=== PATIENT | female | born 1965 | race Caucasian/White ===

== ENCOUNTER → 2018-06-21 | Emergency (ER) | payer OTHER ==
[~2018-06-21] MED LIST: ASPIRIN 325 MG TABLET ONE; ASPIRIN 325 MG TABLET PO ONE; ASPIRIN 81 MG CHEWABLE TABLETS ONE; ASPIRIN 81 MG CHEWABLE TABLETS PO ONE; CLOPIDOGREL BISULFATE 300 MG TABLET ONE; CLOPIDOGREL BISULFATE 300 MG TABLET PO ONE; ENOXAPARIN NA (PORCINE) 100 MG/1 ML DISP.SYRIN SQ ONE; ENOXAPARIN NA (PORCINE) 80 MG/0.8 ML DISP.SYRIN SQ ONE; METOPROLOL TARTRATE 5 MG/5 ML VIAL IVPUSH ONE; METOPROLOL TARTRATE 5 MG/5 ML VIAL ONE; NITROGLYCERIN SUBLINGUAL 1/150 0.4 MG TAB ONE; NITROGLYCERIN SUBLINGUAL 1/150 0.4 MG TAB SL ONE; ONDANSETRON 4 MG/2 ML VIAL IVPUSH ONE; ONDANSETRON 4 MG/2 ML VIAL ONE; PANTOPRAZOLE SODIUM 40 MG VIAL IVPUSH ONE; PANTOPRAZOLE SODIUM 40 MG VIAL ONE; morphine CARPU-JECT 4 MG/1 ML DISP.SYRIN IVPUSH ONE; morphine SULFATE 4 MG/ML VIAL ONE
[2018-06-21 18:11] VITALS: TEMP 98; BMI 34.1
--- NOTE | 2018-06-21 18:15 | PDOC ---
History of Present Illness - History of Present Illness Initial Comments: 06/21/18 18:45 Ms. Boykin is a 53 yo female w/ pmh of IBS, anxiety, and HTN who presents for evaluation of chest pain x1 day. Patient reports she was feeling her normal self until she woke up this morning with multiple episodes of diarrhea and vomiting. Patient reports vomiting several times, roughly once every half hour. Vomit was mostly bile and non-bloody and associated with midline sternal chest pain. Patient reports she has had a similar episode to this once before and that the only thing that helped her at that time was morphine. Patient endorses drinking one beer and some wine yesterday evening. Patient also reports she used to take xanax for anxiety but has recently run out. Per step-father who is with her, patient has recently moved to [facility] to be in a better school district for daughter. He also informs that Ms. Boykin will often drink a full bottle of wine of an evening and that she has significant anxiety. Both he and patient believe her anxiety is causing this episode. The patient denies shortness of breath, headache and dizziness. Denies fever, chills, and constipation. Denies dysuria, frequency, urgency and hematuria. Allergies: NKDA <Can Patiño - Last Filed: 06/21/18 18:49> <Tami Sauceda - Last Filed: 06/21/18 20:37> - General Chief Complaint: Chest Pain Stated Complaint: SHORT OF BREATH CHEST PAIN NAUSEA WRETCHING Time Seen by Provider: 06/21/18 18:01 Past History - Past Medical History COPD: No GI Disorders: Yes (GERD) HTN: Yes - Suicide/Smoking/Psychosocial Hx Smoking History: Current every day smoker Have you smoked in the past 12 months: Yes Number of Cigarettes Smoked Daily: 5 Information on smoking cessation initiated: Yes 'Breaking Loose' booklet given: 06/21/18 Hx Alcohol Use: Yes (WINE) Drug/Substance Use Hx: Yes (MARIJUANA) Substance Use Type: Alcohol, Marijuana <Can Patiño - Last Filed: 06/21/18 18:49> <Tami Sauceda - Last Filed: 06/21/18 20:37> - Past Medical History Allergies/Adverse Reactions: Allergies Allergy/AdvReac Type Severity Reaction Status Date / Time No Known Allergies Allergy Unverified 06/21/18 17:59 Home Medications: Ambulatory Orders Enalapril Maleate [Vasotec -] 10 mg PO DAILY 06/21/18 Review of Systems - Review of Systems Comments:: 06/21/18 18:14 GENERAL/CONSTITUTIONAL: No fever or chills. No weakness. HEAD, EYES, EARS, NOSE AND THROAT: No change in vision. No ear pain or discharge. No sore throat. CARDIOVASCULAR: +Midline chest pain, constant, underneath sternum. No shortness of breath RESPIRATORY: No cough, wheezing, or hemoptysis. GASTROINTESTINAL: +Generalized abdominal pain as well since chest pain started. N/V/D as described. No constipation. GENITOURINARY: No dysuria, frequency, or change in urination. MUSCULOSKELETAL: No joint or muscle swelling or pain. No neck or back pain. SKIN: No rash NEUROLOGIC: No headache, vertigo, loss of consciousness, or change in strength/ sensation. ENDOCRINE: No increased thirst. No abnormal weight change HEMATOLOGIC/LYMPHATIC: No anemia, easy bleeding, or history of blood clots. ALLERGIC/IMMUNOLOGIC: No hives or skin allergy. <Can Patiño - Last Filed: 06/21/18 18:49> *Physical Exam - Vital Signs Last Vital Signs Temp Pulse Resp BP Pulse Ox 98 F 110 H 22 160/110 99 06/21/18 17:59 06/21/18 17:59 06/21/18 17:59 06/21/18 17:59 06/21/18 17:59 - Physical Exam Comments: 06/21/18 18:14 GENERAL: Awake, alert, and fully oriented, in no acute distress HEAD: No signs of trauma, normocephalic, atraumatic EYES: PERRLA, EOMI, sclera anicteric, conjunctiva clear ENT: Auricles normal inspection, hearing grossly normal, nares patent, oropharynx clear without exudates. Moist mucosa NECK: Normal ROM, supple, no lymphadenopathy, JVD, or masses LUNGS: No distress, speaks full sentences, clear to auscultation bilaterally HEART: Regular rate and rhythm, normal S1 and S2, no murmurs, rubs or gallops, peripheral pulses normal and equal bilaterally. ABDOMEN: +Patient TTP in all 4 quadrants. Soft, normoactive bowel sounds. No guarding, no rebound. No masses EXTREMITIES: Normal inspection, Normal range of motion, no edema. No clubbing or cyanosis. NEUROLOGICAL: Cranial nerves II through XII grossly intact. Normal speech, normal gait, no focal sensorimotor deficits SKIN: Warm, Dry, normal turgor, no rashes or lesions noted. <Can Patiño - Last Filed: 06/21/18 18:49> - Vital Signs Last Vital Signs Temp Pulse Resp BP Pulse Ox 98 F 112 H 20 118/99 100 06/21/18 17:59 06/21/18 18:40 06/21/18 18:40 06/21/18 18:40 06/21/18 18:40 <Tami Sauceda - Last Filed: 06/21/18 20:37> ED Treatment Course - LABORATORY CBC & Chemistry Diagram: 06/21/18 18:28 06/21/18 18:28 - RADIOLOGY Radiology Studies Ordered: Category Date Time Status CHEST X-RAY PORTABLE* [RAD] Stat Radiology 06/21/18 18:05 Ordered <Can Patiño - Last Filed: 06/21/18 18:49> - LABORATORY CBC & Chemistry Diagram: 06/21/18 18:28 06/21/18 19:14 - ADDITIONAL ORDERS Additional order review: Laboratory Results 06/21/18 06/21/18 06/21/18 18:28 18:28 18:28 PT with INR INR Sodium Cancelled Potassium Cancelled Chloride Cancelled Carbon Dioxide Cancelled Anion Gap Cancelled BUN Cancelled Creatinine Cancelled Creat Clearance w eGFR Cancelled Random Glucose Cancelled Calcium Cancelled Magnesium 1.8 Total Bilirubin Cancelled AST Cancelled ALT Cancelled Alkaline Phosphatase Cancelled Creatine Kinase Cancelled Creatine Kinase Index Cancelled CK-MB (CK-2) Cancelled Troponin I Cancelled Total Protein Cancelled Albumin Cancelled 06/21/18 18:28 PT with INR 11.1 INR 0.99 Sodium Potassium Chloride Carbon Dioxide Anion Gap BUN Creatinine Creat Clearance w eGFR Random Glucose Calcium Magnesium Total Bilirubin AST ALT Alkaline Phosphatase Creatine Kinase Creatine Kinase Index CK-MB (CK-2) Troponin I Total Protein Albumin 06/21/18 18:28 RBC 5.00 MCV 94.0 MCHC 34.2 RDW 12.5 MPV 9.5 Neutrophils % No Result Required. Lymphocytes % No Result Required. - Medications Given in the ED: ED Medications Discontinued Medications Generic Name Dose Route Start Last Admin Trade Name Gianni PRN Reason Stop Dose Admin Aspirin 325 mg 06/21/18 18:01 06/21/18 18:49 Asa - PO 06/21/18 18:02 Not Given ONCE ONE Aspirin 325 mg 06/21/18 18:04 06/21/18 18:49 Asa - PO 06/21/18 18:05 Not Given ONCE ONE Aspirin 162 mg 06/21/18 18:47 06/21/18 18:51 Asa - PO 06/21/18 18:48 162 mg ONCE ONE Administration Nitroglycerin 0.4 mg 06/21/18 18:01 06/21/18 18:20 Nitrostat - SL 06/21/18 18:02 0.4 mg ONCE ONE Administration Ondansetron HCl 4 mg 06/21/18 18:01 06/21/18 18:40 Zofran Injection IVPUSH 06/21/18 18:02 4 mg ONCE ONE Administration Pantoprazole Sodium 40 mg 06/21/18 18:03 06/21/18 18:43 Protonix Iv IVPUSH 06/21/18 18:04 40 mg ONCE ONE Administration <Tami Sauceda - Last Filed: 06/21/18 20:37> Medical Decision Making - Medical Decision Making 06/21/18 18:54 Ms. Boykin is a 53 yo female w/ pmh as described who presents for evaluation of chest and abdominal pain with nausea and vomiting. Patient given SL Nitroglycerin at presentation with no alleviation of symptoms. Patient also given protonix and ASA 162 for prophylaxis. Cardiac workup started for further evaluation. Patient signed off to oncoming team for further evaluation. <Can Patiño - Last Filed: 06/21/18 18:49> *DC/Admit/Observation/Transfer <Can Patiño - Last Filed: 06/21/18 18:49> <Tami Sauceda - Last Filed: 06/21/18 20:37> Diagnosis at time of Disposition: STEMI (ST elevation myocardial infarction) Qualifiers: Involved coronary artery: unspecified coronary artery Qualified Code(s): I21.3 - ST elevation (STEMI) myocardial infarction of unspecified site - Discharge Dispostion Disposition: TRANSFER ACUTE CARE/OTHER HOSP Condition at time of disposition: Guarded
--- NOTE | 2018-06-21 18:23 | PDOC ---
Attending Attestation - [facility] HPI: 06/21/18 18:57 The patient is a 53 year old female with a significant past medical history of IBS, anxiety, and HTN who presents to the ED complaining of epigastric pain, nausea, and vomiting since this morning. She reports multiple episodes of bilious emesis, no blood reported. She also reports water diarrhea without blood but notes this is chronic due to supposed colitis. Patient notes one similar episode several months ago in [facility] and was treated symptomatically with intravenous fluids and pain medication without definite diagnosis. Further history obtained from step father reveals chronic alcohol abuse and anxiety issues. There has also been chronic use of benzodiazepines in the past but no other abuse of drugs. Documentation prepared by Adilson Brody, acting as chief medical technologist for Emergency Dept,Physician, - Physicial Exam PE: 06/21/18 18:59 GENERAL: Afebrile, Normal Blood pressure and O2 saturation. Well developed, well nourished. Awake and alert. No acute distress. HEENT: Normocephalic, atraumatic. PERRLA, EOMI. No conjunctival pallor. Sclera are non- icteric. Moist mucous membranes. Oropharynx is clear. NECK: Supple. Full ROM. No JVD. Carotid pulses 2+ and symmetric, without bruits. No thyromegaly. No lymphadenopathy. CARDIOVASCULAR: + mild tachycardia Regular rhythm. No murmurs, rubs, or gallops. Distal pulses are 2+ and symmetric. PULMONARY: No evidence of respiratory distress. Lungs clear to auscultation bilaterally. No wheezing, rales or rhonchi. ABDOMINAL: + Mild diffuse tenderness in the epigastrium, right and left upper quadrant without guarding or rebound. Hewitt sign is negative. Soft. . Non-distended.No organomegaly. Normoactive bowel sounds. MUSCULOSKELETAL Normal range of motion at all joints. No bony deformities or tenderness. No CVA tenderness. EXTREMITIES: No cyanosis. No clubbing. No edema. No calf tenderness. SKIN: Warm and dry. Normal capillary refill. No rashes. No jaundice. NEUROLOGICAL: Alert, awake, appropriate. Cranial nerves 2-12 intact. No deficits to light touch and temperature in face, upper extremities and lower extremities. No motor deficits in the in face, upper extremities and lower extremities. Normoreflexic in the upper and lower extremities. Normal speech. Toes are down- going bilaterally. Gait is normal without ataxia. PSYCHIATRIC: Cooperative. Good eye contact. Appropriate mood and affect. - Medical Decision Making 06/21/18 18:59 Most likely gastritis secondary to chronic alcohol abuse. Rule out atypical cardiac presentation. Other possibilities include peptic ulcer disease, biliary colic, renal colic, viral gastroenteritis. Plan will be cardiac and GI workup, trial of nitroglycerin, GI medication, OBS monitor <Adilson Brody - Last Filed: 06/21/18 18:57> - Resident Resident Name: Can Patiño - ED Attending Attestation I have performed the following: I have examined & evaluated the patient, The case was reviewed & discussed with the resident, I agree w/resident's findings & plan, Exceptions are as noted - Medical Decision Making Patient was more comfortable after being medicated. EKG shows some nonspecific ST T-segment changes in the lateral leads, especially V5 and V6. No old EKG is available for comparison. Although these are elevations that appear more like J- point elevation than signs of cardiac injury, however, aspirin administered, cardiac enzymes drawn, manager monitoring in place, and nitroglycerin administered. Signed out to Dr. Sauceda at 7 PM pending results of lab, results of medical therapy, and further evaluation and treatment. 06/23/18 07:18 <Jerome Marino - Last Filed: 06/23/18 07:20>
[2018-06-21 18:49] LABS: HEMOGLOBIN 16.1 GM/dl (10.7-15.3); MCH 32.2 pg (25.7-33.7); MCHC 34.2 g/dl (32.0-36.0); MEAN PLT VOLUME 9.5 fl (7.5-11.1); PLATELET COUNT 365 K/MM3 (134-434); RDW 12.5 % (11.6-15.6); WHITE BLOOD COUNT 16.3 K/mm3 (4.0-10.8)
[2018-06-21 18:56] LABS: INR 0.99 (0.82-1.09); PROTHROMBIN TIME (PATIENT) 11.1 SEC (10.2-13.0)
[2018-06-21 19:35] LABS: ALBUMIN 4.5 g/dl (3.5-5.0); ALK PHOS 70 U/L (32-92); ANION GAP 13 MMOL/L (8-16); BILIRUBIN,TOTAL 1.3 mg/dl (0.2-1.0); BLOOD UREA NITROGEN 17 mg/dl (7-18); CALCIUM 9.6 mg/dl (8.4-10.2); CHLORIDE 105 mmol/L (98-107); CO2 22 mmol/L (22-28); CREATININE 0.7 mg/dl (0.6-1.3); GLUCOSE,RANDOM 190 mg/dl (74-106); POTASSIUM 3.9 mmol/L (3.5-5.1); SGOT/AST 38 U/L (10-42); SGPT/ALT 46 U/L (10-40); SODIUM 140 mmol/L (136-145); TOT PROT 7.8 g/dl (6.4-8.3)
[2018-06-21 19:51] LABS: URINE APPEARANCE Clear; URINE BILIRUBIN 1+ (NEGATIVE); URINE COLOR Yellow; URINE GLUCOSE (UA) Negative (NEGATIVE); URINE KETONE 4+ (NEGATIVE); URINE LEUK ESTERASE Negative (NEGATIVE); URINE NITRITE Negative (NEGATIVE); URINE UROBILINOGEN 0.2 (0.2-1.0)
--- NOTE | 2018-06-21 19:53 | PDOC ---
*Physical Exam - Vital Signs Last Vital Signs Temp Pulse Resp BP Pulse Ox 98 F 112 H 20 118/99 100 06/21/18 17:59 06/21/18 18:40 06/21/18 18:40 06/21/18 18:40 06/21/18 18:40 ED Treatment Course - LABORATORY CBC & Chemistry Diagram: 06/21/18 18:28 06/21/18 19:14 - ADDITIONAL ORDERS Additional order review: Laboratory Results 06/21/18 06/21/18 06/21/18 19:14 19:14 18:28 PT with INR INR Sodium 140 Potassium 3.9 Chloride 105 Carbon Dioxide 22 Anion Gap 13 BUN 17 Creatinine 0.7 Creat Clearance w eGFR > 60 Random Glucose 190 H Calcium 9.6 Magnesium Total Bilirubin 1.3 H AST 38 ALT 46 H Alkaline Phosphatase 70 Creatine Kinase 176 Cancelled Creatine Kinase Index Cancelled CK-MB (CK-2) Cancelled Troponin I 2.36 H* Total Protein 7.8 Albumin 4.5 06/21/18 06/21/18 06/21/18 18:28 18:28 18:28 PT with INR 11.1 INR 0.99 Sodium Cancelled Potassium Cancelled Chloride Cancelled Carbon Dioxide Cancelled Anion Gap Cancelled BUN Cancelled Creatinine Cancelled Creat Clearance w eGFR Cancelled Random Glucose Cancelled Calcium Cancelled Magnesium 1.8 Total Bilirubin Cancelled AST Cancelled ALT Cancelled Alkaline Phosphatase Cancelled Creatine Kinase Creatine Kinase Index CK-MB (CK-2) Troponin I Cancelled Total Protein Cancelled Albumin Cancelled 06/21/18 18:28 RBC 5.00 MCV 94.0 MCHC 34.2 RDW 12.5 MPV 9.5 Neutrophils % No Result Required. Lymphocytes % No Result Required. - Medications Given in the ED: ED Medications Discontinued Medications Generic Name Dose Route Start Last Admin Trade Name Freq PRN Reason Stop Dose Admin Aspirin 325 mg 06/21/18 18:01 06/21/18 18:49 Asa - PO 06/21/18 18:02 Not Given ONCE ONE Aspirin 325 mg 06/21/18 18:04 06/21/18 18:49 Asa - PO 06/21/18 18:05 Not Given ONCE ONE Aspirin 162 mg 06/21/18 18:47 06/21/18 18:51 Asa - PO 06/21/18 18:48 162 mg ONCE ONE Administration Nitroglycerin 0.4 mg 06/21/18 18:01 06/21/18 18:20 Nitrostat - SL 06/21/18 18:02 0.4 mg ONCE ONE Administration Ondansetron HCl 4 mg 06/21/18 18:01 06/21/18 18:40 Zofran Injection IVPUSH 06/21/18 18:02 4 mg ONCE ONE Administration Pantoprazole Sodium 40 mg 06/21/18 18:03 06/21/18 18:43 Protonix Iv IVPUSH 06/21/18 18:04 40 mg ONCE ONE Administration Progress Note - Progress Note Progress Note: Care of this patient received from Dr. Singh. Medical Decision Making - Medical Decision Making 06/21/18 20:38 Troponin positive at 2.36 Patient given morphine 4 mg IV Repeat 12-lead electrocardiogram shows increase in ST elevations in leads V4/V5/ V6. No ICU bed available at [facility] transfer called and case discussed with Dr. Yates, cardiology specialist. Patient accepted for transfer to [facility], ER with Dr. Rd Dudley attending, accepting physician Patient received Lovenox 80 units SQ, Plavix 300 mg by mouth, metoprolol 5 mg IV prior to call to the transfer center. 06/21/18 20:54 [id number] Transport team here for critical care transportation to [facility] *DC/Admit/Observation/Transfer Diagnosis at time of Disposition: STEMI (ST elevation myocardial infarction) Qualifiers: Involved coronary artery: unspecified coronary artery Qualified Code(s): I21.3 - ST elevation (STEMI) myocardial infarction of unspecified site - Discharge Dispostion Disposition: TRANSFER ACUTE CARE/OTHER HOSP Condition at time of disposition: Guarded - Referrals - Patient Instructions - Post Discharge Activity - Transfer to Acute Care Facility Receiving Facility: [facility]. Accepting Physician:: Dr Rd Dudely
[2018-06-21 19:54] LABS: URINE PROTEIN 2+ (NEGATIVE)
[2018-06-21 20:01] LABS: EPI CELLS FEW /HPF; URINE BACTERIA FEW /hpf (NEGATIVE); URINE WBC 0-2 (0-5)
[2018-06-21 20:11] LABS: PLATELET ESTIMATE ADEQUATE
[2018-06-21 20:52] LABS: COCAINE, UR NEGATIVE ng/ml (CUTOFF=300); METHADONE, UR NEGATIVE ng/ml (CUTOFF=300); OPIATES, URI NEGATIVE ng/ml (CUTOFF=300); PHENCYCLIDINE,URINE NEGATIVE ng/ml (CUTOFF=25); URINE AMPHETAMINES NEGATIVE ng/ml (CUTOFF=500); URINE BARBITURATES NEGATIVE ng/ml (CUTOFF=200); URINE BENZODIAZEPINES NEGATIVE ng/ml (CUTOFF=200)
[2018-06-21 21:01] VITALS: BP 117/88; PULSE 98
--- NOTE | 2018-06-22 16:32 | EKG ---
Test Reason : Blood Pressure : / mmHG Vent. Rate : 102 BPM Atrial Rate : 102 BPM P-R Int : 138 ms QRS Dur : 082 ms QT Int : 332 ms P-R-T Axes : 032 045 046 degrees QTc Int : 432 ms AGE AND GENDER SPECIFIC ECG ANALYSIS SINUS TACHYCARDIA SEPTAL INFARCT (CITED ON OR BEFORE 21-JUN-2018) ANTEROLATERAL INJURY PATTERN INFERIOR INJURY PATTERN ACUTE DC / STEMI ABNORMAL ECG WHEN COMPARED WITH ECG OF 21-JUN-2018 18:01, NO SIGNIFICANT CHANGE WAS FOUND Confirmed by Stanislav Stacy ([id number]) on 06/22/2018 4:32:02 PM Referred By: Confirmed By:Stanislav Stacy
--- NOTE | 2018-06-22 16:32 | EKG ---
Test Reason : Blood Pressure : / mmHG Vent. Rate : 106 BPM Atrial Rate : 106 BPM P-R Int : 136 ms QRS Dur : 082 ms QT Int : 350 ms P-R-T Axes : 053 032 050 degrees QTc Int : 464 ms SINUS TACHYCARDIA POSSIBLE LEFT ATRIAL ENLARGEMENT SEPTAL INFARCT (CITED ON OR BEFORE 21-JUN-2018) ABNORMAL ECG WHEN COMPARED WITH ECG OF 21-JUN-2018 17:53, NO SIGNIFICANT CHANGE WAS FOUND Confirmed by Stanislav Stacy ([id number]) on 06/22/2018 4:32:21 PM Referred By: Confirmed By:Stanislav Stacy
== END | disposition short-term general hospital (02) ==
LOC: FER 17:57
PROC: 3E033GC Introduction of Other Therapeutic Substance into Peripheral Vein, Percutaneous Approach (ICD-10-PCS; principal; 2018-06-21)
PROC: 3E033NZ Introduction of Analgesics, Hypnotics, Sedatives into Peripheral Vein, Percutaneous Approach (ICD-10-PCS; 2018-06-21)
DX: I21.3 ST elevation (STEMI) myocardial infarction of unspecified site (principal); I10 Essential (primary) hypertension; F17.210 Nicotine dependence, cigarettes, uncomplicated; K21.9 Gastro-esophageal reflux disease without esophagitis
CPT/HCPCS: 36415; 71045-TC-FY; 80053; 80307; 81003; 81015; 82550; 82553; 83735; 84484; 85025; 85610; 87086; 93005; 99285-25